=== PATIENT | male | born 1985 ===

== ENCOUNTER 2016-08-14 20:23 | Emergency (ER) | payer BC ==
[2016-08-14 20:35] VITALS: BP 117/76
--- NOTE | 2016-08-14 20:41 | UC ---
Knee Pain HPI - HPI Summary HPI Summary: C/o right knee pain, swelling, & bruising since Thursday. Pt also states area below knee is cooler to touch. Pt was kneed in the back of knee during a basketball game. Injury occured on 08/10. 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 has not taken anything for the pain. It was 7/10 pain day after injury, but has improved since then. Here with his . H/o arthroscopy right knee 15 yrs ago. - History of Current Complaint Chief Complaint: UCLowerExtremity Stated Complaint: KNEE INJURY Time Seen by Provider: 08/14/16 20:39 - Allergies/Home Medications Allergies/Adverse Reactions: Allergies Allergy/AdvReac Type Severity Reaction Status Date / Time No Known Allergies Allergy Verified 08/14/16 20:30 PMH/Surg Hx/FS Hx/Imm Hx Previously Healthy: Yes Endocrine History Of: Denies: Diabetes Cardiovascular History Of: Denies: Cardiac Disorders Respiratory History Of: Denies: Asthma - Surgical History Surgical History: Yes Surgery Procedure, Year, and Place: right KNEE ARTHOSCOPE - Family History Known Family History: Positive: Hypertension - Social History Alcohol Use: None Substance Use Type: None Smoking Status (MU): Never Smoked Tobacco - Immunization History Most Recent Tetanus Shot: WITHIN TWO YEARS Review of Systems Constitutional: Negative Skin: Negative Eyes: Negative ENT: Negative Respiratory: Negative Cardiovascular: Negative Gastrointestinal: Negative Genitourinary: Negative Motor: Negative Neurovascular: Negative Musculoskeletal: Other: - rt lower leg pain Neurological: Negative Psychological: Negative All Other Systems Reviewed And Are Negative: Yes Physical Exam Triage Information Reviewed: Yes Appearance: Well-Appearing, No Pain Distress, Well-Nourished Vital Signs: Initial Vital Signs Temp 98.2 F 08/14/16 20:31 Pulse 55 08/14/16 20:31 Resp 16 08/14/16 20:31 BP 117/76 08/14/16 20:31 Pulse Ox 99 08/14/16 20:31 Vital Signs Reviewed: Yes ENT Exam: Normal Respiratory Exam: Normal Respiratory: Positive: Lungs clear, Normal breath sounds Cardiovascular Exam: Normal Cardiovascular: Positive: RRR, No Murmur, Pulses Normal Musculoskeletal: Positive: Other: - mild tenderness and mild bruising rt proximal latero-posterior lower leg. No Varus/valgus laxity. Neg ant/post drawer. neg keven's and mcmurrays. Neurological Exam: Normal Psychological Exam: Normal Skin Exam: Normal Knee Pain Course/Dx - Course Course Of Treatment: Xray rt knee - proximal fibula non-displaced frx. He declines splint today as he has been walking and standing on it for 4 days and will be calling ortho to be seen tomorrow. Fitted for crutches. No weight bearing. - Differential Dx/Diagnosis Differential Diagnosis/HQI/PQRI: Contusion, Dislocation, Fracture (Closed), Sprain, Strain, Tendonitis Provider Diagnoses: non displaced proximal fibula fracture Discharge - Discharge Plan Condition: Stable Disposition: HOME Patient Education Materials: Leg Fracture (ED) Referrals: aRfy Jones MD [Medical Doctor] - 1 Day Jimena Holt MD [Primary Care Provider] - Additional Instructions: We have given you crutches so you can be non-weight bearing. You have a non- displaced fracture of the proximal fibula. Make sure to call the ortho first thing in the morning to be seen tomorrow. You can take ibuprofen for pain/ swelling. Ice 20 mins on/20 mins off with towel barrier.
--- NOTE | 2016-08-14 21:15 | RAD ---
HISTORY: Right knee injury COMPARISONS: None VIEWS: 4, Frontal, lateral, axial, and oblique views of the right knee FINDINGS: BONE DENSITY: Normal. BONES: There is a nondisplaced fracture of the proximal fibula JOINTS: There is mild tricompartment osteoarthritis. ALIGNMENT: There is no dislocation. SOFT TISSUES: Unremarkable. OTHER FINDINGS: None. IMPRESSION: NONDISPLACED FRACTURE OF THE PROXIMAL FIBULA
== END 2016-08-14 21:39 | disposition home or self-care (01) ==
LOC: UCCORT 20:23
DX: S82.831A Other fracture of upper and lower end of right fibula, initial encounter for closed fracture (principal); W50.0XXA Accidental hit or strike by another person, initial encounter; Y93.67 Activity, basketball; Y92.310 Basketball court as the place of occurrence of the external cause
CPT/HCPCS: 99202; G0463